=== PATIENT | male | born 1950 | race Caucasian/White ===

== ENCOUNTER → 2016-11-03 | Day surgery (SDC) | payer BC ==
[2016-10-21 14:01] VITALS: Ht 165.1 cm; Wt 68.2 kg
[~2016-11-03] VITALS: Ht 165.1 cm; Wt 68.2 kg
[~2016-11-03] MED LIST: ASPI81TA28 PO; ATRIN INH; FENTANYL CITRATE INJ 50 MCG/1 ML 2 ML VIAL ONE; LIDOCAINE HCL 2% 2 ML VIAL (20MG/ML) ONE; OMEP20TA PO; PRAV20TA PO; PROPOFOL IV EMULSION 10 MG/ML 20 ML VIAL IV ONE; SODIUM CHLORIDE 0.9% 500ML 500 ML IV ONE; ZOLP5TAB PO
--- NOTE | 2016-11-03 12:17 | Endo History and Physical ---
History & Physical Date of Service: Nov 03, 2016. Chief Complaint: HX OF MONTELONGO'S Referring Physician: DR. 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 Past Medical History Gastrointestinal Disorder, High Cholesterol, Other Past Surgical History Hx Cardiac Surgery: No Hx Internal Defibrillator: No Hx Pacemaker: No Hx Abdominal Surgery: Yes (HERNIA) Hx Post-Op Nausea and Vomiting: No Hx Cancer Surgery: No Hx Thoracic Surgery: No Hx Orthopedic: Yes (LEFT SHOULDER ARTHROSCOPY; RIGHT KNEE ARTHROSCOPY) Hx Urinary Tract Surgery: No Family History None Social History Smoking Status: Former Smoker Hx Substance Use: No Hx Alcohol Use: Yes ("VERY VERY VERY SELDOM") Allergies Coded Allergies: No Known Allergies (Verified , 10/21/16) Current Medications Reported Home Medications Medications Dose Route/Sig Max Daily Dose Days Date Category Atrovent Hfa (Ipratropium [place]) 200 Puffs/3400 Mcg Aers 2 Puffs INH QID 10/21/16 Reported Ambien (Zolpidem Tartrate) 5 Mg Tab 5 Mg PO HS 06/20/13 Reported Omeprazole 20 Mg Tab 20 Mg PO QPM 06/20/13 Reported Aspirin Ec (Aspirin) 81 Mg Tab 81 Mg PO QPM 06/20/13 Reported Pravachol (Pravastatin Sodium) 20 Mg Tab 20 Mg PO HS 06/29/11 Reported Vital Signs Weight (Kilograms): 68.18 Height (Feet): 5 Height (Inches): 5 Date Time Temp Pulse Resp B/P (MAP) Pulse Ox O2 Delivery O2 Flow Rate FiO2 11/03/16 10:55 36.5 84 24 158/87 (110) 98 Room Air Physical Exam General Appearance: WD/WN, no apparent distress Respiratory/Chest: Auscultation: breath sounds normal Cardiovascular: Heart Auscultation: RRR Abdomen: Bowel Sounds: normal Inspection & Palpation: soft, non-distended, no tenderness, guarding & rebound Assessment and Plan Assessment: 66 yo CM who presents for 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
--- NOTE | 2016-11-03 12:22 | Discharge Instructions ---
Endoscopy Patient Instructions Date / Procedure(s) Performed Nov 03, 2016. EGD Allergy Information Coded Allergies: No Known Allergies (Verified , 10/21/16) Discharge Date / Findings Nov 03, 2016. Anthony's Esophagus s/p biopsies Hiatal hernia Medication Instructions Stopped Medication(s): ASPIRIN 11/02/16 Restart Stopped Medication(s): OK to resume all medications today as prescribed Reported Home Medications Medications Dose Route/Sig Max Daily Dose Days Date Category Atrovent Hfa (Ipratropium [place]) 200 Puffs/3400 Mcg Aers 2 Puffs INH QID 10/21/16 Reported Ambien (Zolpidem Tartrate) 5 Mg Tab 5 Mg PO HS 06/20/13 Reported Omeprazole 20 Mg Tab 20 Mg PO QPM 06/20/13 Reported Aspirin Ec (Aspirin) 81 Mg Tab 81 Mg PO QPM 06/20/13 Reported Pravachol (Pravastatin Sodium) 20 Mg Tab 20 Mg PO HS 06/29/11 Reported Provider Instructions Activity Restrictions - No exercising or heavy lifting for 24 hours. - Do not drink alcohol the day of the procedure. - Do not drive a car or operate machinery until the day after the procedure. - Do not make any important decisions or sign important papers in 24 hours after the procedure. Following Day: - Return to full activity which may include returning to work/school. Diet Start your diet with liquids and light foods (jello, soup, juice, toast). Then eat your usual diet if not nauseated. Treatment For Common After Affects For mild abdominal pain, bloating, or excessive gas: - Rest - Eat lightly - Lie on right side Follow-Up Information Follow-up with DR. LANDERS as scheduled Anesthesia Information What You Should Know You have had a procedure that required some medicine to reduce anxiety and discomfort. This treatment is called moderate sedation. After receiving the treatment, you may be sleepy, but you will be able to breathe on your own. The effects of the treatment may last for several hours. Follow these instructions along with Activity/Diet recommendations noted above: * Do NOT do anything where dizziness or clumsiness would be dangerous. * Rest quietly at home today, then you can be up and about tomorrow. * Have a responsible person stay with you the rest of today. * You may have had an I.V. today. If so, you may take the dressing off later today. Recommendations Call your doctor if: * Trouble breathing * Continuous vomiting for more than 24 hours * Temperature above 101 degrees * Severe abdominal pain or bloating * Pain not relieved by pain medicine ordered * There is increased drainage or redness from any incision * A large amount of rectal bleeding greater than 2-3 tablespoons. (If you had a polyp/s removed or have hemorrhoids, a small amount of blood - from the rectum is to be expected.) * You have any unanswered questions or concerns. IN THE EVENT OF A SERIOUS EMERGENCY, GO TO THE NEAREST EMERGENCY ROOM Your discharge instructions were prepared by provider Pola Griffith. Patient Instructions Signature Page Dennys Leung Patient (or Guardian) Signature/Date: I have read and understand the instructions given to me by my caregivers. Caregiver/RN/Doctor Signature/Date: The above-named patient and/or guardian has received patient instructions on this date. + Original Patient Signature Page (only) stays with chart. Please make copy for patient.
[2016-11-03 12:55] VITALS: BP 135/88; PULSE 61; O2SAT 98
--- NOTE | 2016-11-03 12:57 | GI REPORT ---
Procedure Date: 11/03/2016 11:53 AM Procedure: Upper GI endoscopy Indications: Follow-up of Anthony's esophagus Medicines: Monitored Anesthesia Care Complications: No immediate complications. Estimated Blood Loss: Estimated blood loss: none. Procedure: Pre-Anesthesia Assessment: - Prior to the procedure, a History and Physical was performed, and patient medications and allergies were reviewed. The patient's tolerance of previous anesthesia was also reviewed. The risks and benefits of the procedure and the sedation options and risks were discussed with the patient. All questions were answered, and informed consent was obtained. Prior Anticoagulants: The patient has taken aspirin, last dose was 1 day prior to procedure. ASA Grade Assessment: II - A patient with mild systemic disease. After reviewing the risks and benefits, the patient was deemed in satisfactory condition to undergo the procedure. After obtaining informed consent, the endoscope was passed under direct vision. Throughout the procedure, the patient's blood pressure, pulse, and oxygen saturations were monitored continuously. The scope was introduced through the mouth, and advanced to the second part of duodenum. The scope was introduced through the and advanced to the. The upper GI endoscopy was accomplished without difficulty. The patient tolerated the procedure well. Findings: There were esophageal mucosal changes consistent with short-segment Anthony's esophagus present at the gastroesophageal junction. The maximum longitudinal extent of these mucosal changes was 1 cm in length. Mucosa was biopsied with a cold forceps for histology. One specimen bottle was sent to pathology. A small hiatus hernia was present. The examined duodenum was normal. Impression: - Esophageal mucosal changes consistent with short-segment Anthony's esophagus. Biopsied. - Small hiatus hernia. - Normal examined duodenum. Recommendation: - Resume previous diet. - Continue present medications. - Await pathology results. - Return to primary care physician as previously scheduled. Pola Griffith DO 11/03/2016 12:56:54 PM This report has been signed electronically. Note Initiated On: 11/03/2016 11:53 AM I attest to the content of the Intraoperative Record and orders documented therein, exceptions below
--- NOTE | 2016-11-03 13:14 | Anesthesiology Progress Note ---
Anesthesia Post Op Note Date & Time Nov 03, 2016 at 13:14 Vital Signs Pain Intensity: 0 Vital Signs Past 12 Hours Date Time Temp Pulse Resp B/P (MAP) Pulse Ox O2 Delivery O2 Flow Rate FiO2 11/03/16 12:55 61 20 135/88 (104) 98 Room Air 11/03/16 12:39 65 20 102/70 (81) 98 Room Air 11/03/16 12:24 72 16 104/63 (77) 98 Room Air 11/03/16 10:55 36.5 84 24 158/87 (110) 98 Room Air Notes Mental Status: alert / awake / arousable, participated in evaluation Pt Amnestic to Procedure: Yes Nausea / Vomiting: adequately controlled Pain: adequately controlled Airway Patency, RR, SpO2: stable & adequate BP & HR: stable & adequate Hydration State: stable & adequate Anesthetic Complications: no major complications apparent
== END | disposition home or self-care (01) ==
LOC: C.GI 10:36
PROVIDERS: ATTEND Internal Medicine
DX: K22.70 Barrett's esophagus without dysplasia (principal); K44.9 Diaphragmatic hernia without obstruction or gangrene; E78.00 Pure hypercholesterolemia, unspecified; Z87.891 Personal history of nicotine dependence; Z79.82 Long term (current) use of aspirin

== ENCOUNTER → 2017-09-09 | Outpatient (CLI) | payer OTHER ==
[~2017-09-09] MED LIST changes: -FENTANYL CITRATE INJ 50 MCG/1 ML 2 ML VIAL ONE; -LIDOCAINE HCL 2% 2 ML VIAL (20MG/ML) ONE; -PROPOFOL IV EMULSION 10 MG/ML 20 ML VIAL IV ONE; -SODIUM CHLORIDE 0.9% 500ML 500 ML IV ONE
--- NOTE | 2017-09-09 09:45 | DIAGNOSTIC IMAGING REPORT ---
CHEST 2 VIEWS ROUTINE CLINICAL HISTORY: 67 years-old Male presenting with ABNORMAL WEIGHT LOSS. TECHNIQUE: PA and lateral views of the chest were obtained. COMPARISON: 03/23/2008, 10/03/2009, and chest CT from 11/28/2014. FINDINGS: Cardiomediastinal silhouette normal. Limited bandlike opacity at the left lung base, unchanged and likely scarring. Mild hyperinflation. Subtle heterogeneity of lung parenchyma. Lungs and pleural spaces clear. Osseous structures normal. Upper abdomen normal. IMPRESSION: 1. Findings suggest emphysema. No focal infiltrate to suggest pneumonia. Electronically signed by: Jose A Dalal M.D. 09/09/2017 9:43 AM Dictated Date/Time: 09/09/2017 9:42 AM
== END | disposition home or self-care (01) ==
LOC: C.RAD1850 08:59
PROVIDERS: ATTEND Family Medicine
DX: R63.4 Abnormal weight loss (principal)

== ENCOUNTER → 2017-11-28 | Day surgery (SDC) | payer OTHER ==
[2017-11-21 15:42] VITALS: BMI 23.0
[~2017-11-28] VITALS: Ht 167.6 cm; Wt 65.9 kg
[~2017-11-28] MED LIST changes: -ATRIN INH; +LIDOCAINE HCL 2% 2 ML VIAL (20MG/ML) ONE; +PROPOFOL IV EMULSION 10 MG/ML 20 ML VIAL ONE; +SODIUM CHLORIDE 0.9% 500ML 500 ML IV ONE; +SPRIN/30 INH
[2017-11-28 14:28] VITALS: Ht 167.6 cm; Wt 65.9 kg
--- NOTE | 2017-11-28 15:42 | Endo History and Physical ---
History & Physical Date of Service: Nov 28, 2017. Chief Complaint: WEIGHT LOSS Referring Physician: DR. LANDERS History of Present Illness 67 yo CM who presents for Colonoscopy secondary to weight loss. Past Medical History Gastrointestinal Disorder, High Cholesterol, Other Past Surgical History Hx Cardiac Surgery: No Hx Internal Defibrillator: No Hx Pacemaker: No Hx Abdominal Surgery: Yes (HERNIA) Hx Post-Op Nausea and Vomiting: No Hx Cancer Surgery: No Hx Thoracic Surgery: No Hx Orthopedic: Yes (LEFT SHOULDER ARTHROSCOPY; RIGHT KNEE ARTHROSCOPY) Hx Urinary Tract Surgery: No Family History None Social History Smoking Status: Former Smoker Hx Substance Use: No Hx Alcohol Use: Yes (VERY LITTLE, "MAYBE 6 BEERS A YEAR") Allergies Coded Allergies: No Known Allergies (Verified , 11/28/17) Current Medications Reported Home Medications Medications Dose Route/Sig Max Daily Dose Days Date Category Spiriva Handihaler (Tiotropium [place]) 30 Puff/540 Mcg Aerp 1 Cap INH DAILY 11/21/17 Reported Ambien (Zolpidem Tartrate) 5 Mg Tab 5 Mg PO HS 06/20/13 Reported Omeprazole 20 Mg Tab 20 Mg PO QDD 06/20/13 Reported Aspirin Ec (Aspirin) 81 Mg Tab 81 Mg PO QPM 06/20/13 Reported Pravachol (Pravastatin Sodium) 20 Mg Tab 20 Mg PO HS 06/29/11 Reported Vital Signs Weight (Kilograms): 65.91 Height (Feet): 5 Height (Inches): 6 Date Time Temp Pulse Resp B/P (MAP) Pulse Ox O2 Delivery O2 Flow Rate FiO2 11/28/17 14:39 36.4 65 18 133/85 (101) 97 Room Air Physical Exam General Appearance: WD/WN, no apparent distress Respiratory/Chest: Auscultation: breath sounds normal Cardiovascular: Heart Auscultation: RRR Abdomen: Bowel Sounds: normal Inspection & Palpation: soft, non-distended, no tenderness, guarding & rebound Assessment and Plan Assessment: 67 yo CM who presents for Colonoscopy secondary to weight loss. Plan: Proceed with colonoscopy.
--- NOTE | 2017-11-28 16:25 | GI REPORT ---
Patient Name: Dennys Leung Procedure Date: 11/28/2017 3:47 PM Date of : 1950 Admit Type: Outpatient Age: 67 Gender: Male Attending MD: Pola Griffith DO Procedure: Colonoscopy Providers: Pola Griffith DO Referring MD: Nai Wright Indications: Weight loss Medicines: Monitored Anesthesia Care Complications: No immediate complications. Estimated Blood Loss: Estimated blood loss: none. Procedure: Pre-Anesthesia Assessment: - Prior to the procedure, a History and Physical was performed, and patient medications and allergies were reviewed. The patient's tolerance of previous anesthesia was also reviewed. The risks and benefits of the procedure and the sedation options and risks were discussed with the patient. All questions were answered, and informed consent was obtained. Prior Anticoagulants: The patient has taken aspirin, last dose was 1 day prior to procedure. ASA Grade Assessment: III - A patient with severe systemic disease. After reviewing the risks and benefits, the patient was deemed in satisfactory condition to undergo the procedure. After I obtained informed consent, the scope was passed under direct vision. Throughout the procedure, the patient's blood pressure, pulse, and oxygen saturations were monitored continuously. The scope was introduced through the anus and advanced to the terminal ileum. The colonoscopy was performed without difficulty. The patient tolerated the procedure well. The quality of the bowel preparation was good. The terminal ileum, ileocecal valve, appendiceal orifice, and rectum were photographed. Findings: The perianal and digital rectal examinations were normal. Multiple small-mouthed diverticula were found in the sigmoid colon. Non-bleeding internal hemorrhoids were found during retroflexion. The hemorrhoids were small. Impression: - Diverticulosis in the sigmoid colon. - Non-bleeding internal hemorrhoids. - No specimens collected. Recommendation: - Resume previous diet. - Continue present medications. - Repeat colonoscopy in 10 years for surveillance. - Return to primary care physician as previously scheduled. Pola Griffith DO 11/28/2017 4:25:26 PM This report has been signed electronically. Note Initiated On: 11/28/2017 3:47 PM Number of Addenda: 0 I attest to the content of the Intraoperative Record and orders documented therein, exceptions below {[id number]}
--- NOTE | 2017-11-28 16:29 | Discharge Instructions ---
Endoscopy Patient Instructions Date / Procedure(s) Performed Nov 28, 2017. Colonoscopy Allergy Information Coded Allergies: No Known Allergies (Verified , 11/28/17) Discharge Date / Findings Nov 28, 2017. Diverticulosis Internal hemorrhoids Medication Instructions OK to resume all medications today as prescribed Reported Home Medications Medications Dose Route/Sig Max Daily Dose Days Date Category Spiriva Handihaler (Tiotropium [place]) 30 Puff/540 Mcg Aerp 1 Cap INH DAILY 11/21/17 Reported Ambien (Zolpidem Tartrate) 5 Mg Tab 5 Mg PO HS 06/20/13 Reported Omeprazole 20 Mg Tab 20 Mg PO QDD 06/20/13 Reported Aspirin Ec (Aspirin) 81 Mg Tab 81 Mg PO QPM 06/20/13 Reported Pravachol (Pravastatin Sodium) 20 Mg Tab 20 Mg PO HS 06/29/11 Reported Provider Instructions Activity Restrictions - No exercising or heavy lifting for 24 hours. - Do not drink alcohol the day of the procedure. - Do not drive a car or operate machinery until the day after the procedure. - Do not make any important decisions or sign important papers in 24 hours after the procedure. Following Day: - Return to full activity which may include returning to work/school. Diet Start your diet with liquids and light foods (jello, soup, juice, toast). Then eat your usual diet if not nauseated. Treatment For Common After Affects For mild abdominal pain, bloating, or excessive gas: - Rest - Eat lightly - Lie on right side Follow-Up Information Follow-up with DR. LANDERS as scheduled Anesthesia Information What You Should Know You have had a procedure that required some medicine to reduce anxiety and discomfort. This treatment is called moderate sedation. After receiving the treatment, you may be sleepy, but you will be able to breathe on your own. The effects of the treatment may last for several hours. Follow these instructions along with Activity/Diet recommendations noted above: * Do NOT do anything where dizziness or clumsiness would be dangerous. * Rest quietly at home today, then you can be up and about tomorrow. * Have a responsible person stay with you the rest of today. * You may have had an I.V. today. If so, you may take the dressing off later today. Recommendations Call your doctor if: * Trouble breathing * Continuous vomiting for more than 24 hours * Temperature above 101 degrees * Severe abdominal pain or bloating * Pain not relieved by pain medicine ordered * There is increased drainage or redness from any incision * A large amount of rectal bleeding greater than 2-3 tablespoons. (If you had a polyp/s removed or have hemorrhoids, a small amount of blood - from the rectum is to be expected.) * You have any unanswered questions or concerns. IN THE EVENT OF A SERIOUS EMERGENCY, GO TO THE NEAREST EMERGENCY ROOM Your discharge instructions were prepared by provider Pola Griffith. Patient Instructions Signature Page Dennys Leung Patient (or Guardian) Signature/Date: I have read and understand the instructions given to me by my caregivers. Caregiver/RN/Doctor Signature/Date: The above-named patient and/or guardian has received patient instructions on this date. + Original Patient Signature Page (only) stays with chart. Please make copy for patient.
--- NOTE | 2017-11-28 16:46 | Anesthesiology Progress Note ---
Anesthesia Post Op Note Date & Time Nov 28, 2017 at 16:46 Vital Signs Pain Intensity: 0 Vital Signs Past 12 Hours Date Time Temp Pulse Resp B/P (MAP) Pulse Ox O2 Delivery O2 Flow Rate FiO2 11/28/17 16:42 64 16 117/76 (90) 97 Room Air 11/28/17 16:27 80 16 113/69 (84) 97 Room Air 11/28/17 14:39 36.4 65 18 133/85 (101) 97 Room Air Notes Mental Status: alert / awake / arousable, participated in evaluation Pt Amnestic to Procedure: Yes Nausea / Vomiting: adequately controlled Pain: adequately controlled Airway Patency, RR, SpO2: stable & adequate BP & HR: stable & adequate Hydration State: stable & adequate Anesthetic Complications: no major complications apparent
[2017-11-28 16:56] VITALS: BP 139/80; PULSE 63; O2SAT 98
== END | disposition home or self-care (01) ==
LOC: C.GI 14:01
PROVIDERS: ATTEND Internal Medicine
DX: R63.4 Abnormal weight loss (principal); K64.8 Other hemorrhoids; K57.30 Diverticulosis of large intestine without perforation or abscess without bleeding; K22.70 Barrett's esophagus without dysplasia; J44.9 Chronic obstructive pulmonary disease, unspecified; Z79.82 Long term (current) use of aspirin